=== PATIENT | male | born 1970 | race Caucasian/White ===

== ENCOUNTER 2018-01-20 05:27 | Emergency (ER) | payer OTHER ==
[~2018-01-20] VITALS: Ht 188 cm; Wt 127.0 kg
[~2018-01-20 05:27] MED LIST: ATIVAN0.5 MG; BACTROBAN CREAM30 G1 TOP; FLEXERIL PO; HYDROCODONE-AP1 EAC6 PO; IBUPROFEN 800800 M1 PO; METFORMIN HCL500 MG PO; NEURONTIN600 MG PO; NORCO 10-325 T1 EACH PO; NORCO 5-325 TA1 EACH PO; PRILOSEC 20 MG20 MG PO; PRILOSEC OTC20 MG PO; ROBAXIN 750 MG750 M1 PO; ZANAFLEX4 M1; ZANAFLEX4 MG; ZANAFLEX4 MG PO; ZOLOFT50 MG PO
[2018-01-20 06:00] LABS: ABSOLUTE EOSINOPHILS 0.1 thou/uL (0.0-0.7); ABSOLUTE LYMPHOCYTES 1.3 thou/uL (0.8-5.3); ABSOLUTE MONOCYTES 0.4 thou/uL (0.0-1.2); ABSOLUTE NEUTROPHILS 3.3 thou/uL (1.6-8.1); BASOPHILS 0.9 %; EOSINOPHILS 2.4 %; HEMATOCRIT 42.5 % (42.0-52.0); HEMOGLOBIN 14.3 gm/dL (14.0-18.0); LYMPHOCYTES 25.7 %; MCH 32.1 pg (26.0-34.0); MCHC 33.6 g/dL (28.0-37.0); MCV 95.6 fL (80.0-100.0); MONOCYTES 7.6 %; NUCLEATED RBCS 0 /100WBC; PLATELET COUNT* 324 thou/uL (150-400); POLYS 63.4 %; RBC 4.44 mil/uL (4.50-6.00); RDW-CV 14.6 % (10.5-14.5); WBC 5.2 thou/uL (4.0-11.0)
[2018-01-20 06:14] LABS: ANION GAP 9 mmol/L (7-16); BUN 9 mg/dL (7-18); CALCIUM 8.5 mg/dL (8.5-10.1); CHLORIDE 105 mmol/L (98-107); CO2 28 mmol/L (21-32); CREATININE 1.3 mg/dL (0.6-1.3); GLUCOSE 177 mg/dL (70-99); POTASSIUM 3.4 mmol/L (3.5-5.1); SODIUM 142 mmol/L (136-145)
[2018-01-20 06:18] LABS: ALBUMIN 3.3 g/dL (3.4-5.0); ALKALINE PHOSPHATASE 122 U/L (46-116); SGOT 19 U/L (15-37); SGPT 22 U/L (30-65); TOTAL BILIRUBIN 0.3 mg/dL (<0.1-1.0); TOTAL PROTEIN 7.1 g/dL (6.4-8.2); TROPONIN-I LEVEL <0.06 ng/mL (<0.06)
[2018-01-20 06:51] LABS: URINE BILIRUBIN NEGATIVE (Negative); URINE BLOOD NEGATIVE (Negative); URINE CLARITY CLEAR; URINE COLOR YELLOW; URINE GLUCOSE-RANDOM NEGATIVE (Negative); URINE KETONES NEGATIVE (Negative); URINE LEUKOCYTES-REFLEX 1+ (Negative); URINE NITRITE-REFLEX NEGATIVE (Negative); URINE PROTEIN NEGATIVE (Negative); URINE UROBILINOGEN 0.2 E.U./dl (0.2-1.0)
[2018-01-20 06:59] LABS: AMP/METHAMP Negative (Negative); BACTERIA-REFLEX 1-9 Few /HPF (None Seen); BARBITURATES Negative (Negative); BENZODIAZEPINES Negative (Negative); CASTS None Seen /LPF (None Seen); COCAINE Negative (Negative); CRYSTALS None Seen /LPF (None Seen); METHADONE Negative (Negative); MUCUS 0-3 Light strn/LPF (None Seen); OPIATES POSITIVE (Negative); PCP Negative (Negative); SQUAMOUS 0-3 Few /LPF (0-3); THC Negative (Negative); URINE RBC 0-2 Rare /HPF (0-2); URINE WBC-REFLEX 6-15 Few /HPF (0-5)
[2018-01-20 07:39] VITALS: BP 153/90
--- NOTE | 2018-01-20 12:02 | EKG ---
[place] [address] ELECTROCARDIOGRAM REPORT Name: MARTHA RIVERA [id number] Admission: 01/20/18 Attend Phys: Discharge: 01/20/18 Date of : 70 Report #: [id number] THIS REPORT FOR: //name// [facility] ED Test Date: 2018-01-20 Test Time: 05:43:41 Pat Name: MARTHA RIVERA Department: Room: Gender: M Graphic Coordinator: MIKAELA : 1970 Requested By: Ruth Wild Order Number: [id number] MD: Fred Jimenez Measurements Intervals [place] Rate: 83 P: 37 NC: 146 QRS: 28 QRSD: 90 T: 24 QT: 375 QTc: 441 Interpretive Statements Sinus rhythm Abnormal R-wave progression, early transition Baseline wander in lead(s) III,aVL,V2 Compared to ECG 06/11/2017 21:41:14 No significant changes Electronically Signed On 01-20-2018 12:02:21 PATIENT SERVICE REP by Fred Jimenez [email or web address] <ELECTRONICALLY SIGNED> By: Fred Jimenez MD, [facility] 01/20/18 1202 0543 0543 Fred Jimenez MD, [facility] /EPI
== END 2018-01-20 07:54 | disposition home or self-care (01) ==
LOC: M.ERS 05:27
PROVIDERS: Emergency Medicine
DX: R55 Syncope and collapse (principal); E11.9 Type 2 diabetes mellitus without complications; G89.29 Other chronic pain; F17.210 Nicotine dependence, cigarettes, uncomplicated; M54.9 Dorsalgia, unspecified; Z87.442 Personal history of urinary calculi; W18.39XA Other fall on same level, initial encounter; Y93.89 Activity, other specified; Y92.038 Other place in apartment as the place of occurrence of the external cause; Y99.8 Other external cause status

== ENCOUNTER 2018-04-20 13:47 | Emergency (ER) | payer OTHER ==
[~2018-04-20] VITALS: Ht 188 cm; Wt 129.3 kg
[2018-04-20] MEDS ORDERED: ZANAFLEX4 MG PO (14:29)
[2018-04-20 15:10] LABS: ABSOLUTE EOSINOPHILS 0.1 thou/uL (0.0-0.7); ABSOLUTE LYMPHOCYTES 1.3 thou/uL (0.8-5.3); ABSOLUTE MONOCYTES 0.4 thou/uL (0.0-1.2); ABSOLUTE NEUTROPHILS 2.6 thou/uL (1.6-8.1); BASOPHILS 0.7 %; EOSINOPHILS 3.4 %; HEMATOCRIT 38.5 % (42.0-52.0); HEMOGLOBIN 12.9 gm/dL (14.0-18.0); LYMPHOCYTES 28.9 %; MCH 30.3 pg (26.0-34.0); MCHC 33.6 g/dL (28.0-37.0); MCV 90.1 fL (80.0-100.0); MONOCYTES 8.5 %; MPV 7.5 fl. (7.2-11.1); NUCLEATED RBCS 0 /100WBC; PLATELET COUNT* 286 thou/uL (150-400); POLYS 58.5 %; RBC 4.28 mil/uL (4.50-6.00); RDW-CV 14.7 % (10.5-14.5); WBC 4.4 thou/uL (4.0-11.0)
[2018-04-20 15:27] LABS: ANION GAP 7 mmol/L (7-16); BUN 7 mg/dL (7-18); CHLORIDE 103 mmol/L (98-107); CO2 31 mmol/L (21-32); GLUCOSE 103 mg/dL (70-99); POTASSIUM 3.8 mmol/L (3.5-5.1); SODIUM 141 mmol/L (136-145)
[2018-04-20 15:41] LABS: ALBUMIN 2.8 g/dL (3.4-5.0); ALKALINE PHOSPHATASE 75 U/L (46-116); CK-MB MASS < 0.5 ng/mL (<0.5-3.6); SGOT 17 U/L (15-37); SGPT 18 U/L (30-65); TOTAL BILIRUBIN 0.9 mg/dL (<0.1-1.0); TROPONIN-I LEVEL <0.06 ng/mL (<0.06)
[2018-04-20 16:02] LABS: URINE BILIRUBIN NEGATIVE (Negative); URINE BLOOD NEGATIVE (Negative); URINE CLARITY CLEAR; URINE COLOR YELLOW; URINE GLUCOSE-RANDOM NEGATIVE (Negative); URINE KETONES NEGATIVE (Negative); URINE LEUKOCYTES-REFLEX NEGATIVE (Negative); URINE NITRITE-REFLEX NEGATIVE (Negative); URINE PROTEIN NEGATIVE (Negative)
[2018-04-20 16:06] LABS: AMP/METHAMP Negative (Negative); BARBITURATES Negative (Negative); BENZODIAZEPINES Negative (Negative); COCAINE POSITIVE (Negative); METHADONE Negative (Negative); OPIATES POSITIVE (Negative); PCP Negative (Negative); THC Negative (Negative)
[2018-04-20 17:25] VITALS: BP 139/101
--- NOTE | 2018-04-22 15:46 | EKG ---
[place] [address] ELECTROCARDIOGRAM REPORT Name: MARTHA RIVERA [id number] Admission: 04/20/18 Attend Phys: Discharge: 04/20/18 Date of : 70 Report #: [id number] THIS REPORT FOR: //name// [facility] ED Test Date: 2018-04-20 Test Time: 14:54:15 Pat Name: MARTHA RIVERA Department: Room: Gender: M Inside Sales Coordinator: Sarah HALL : 1970 Requested By: Fany Santoyo Order Number: [id number] MD: Aroldo Barrios Measurements Intervals [place] Rate: 53 P: 27 CT: 148 QRS: 37 QRSD: 92 T: 30 QT: 455 QTc: 428 Interpretive Statements Sinus rhythm with short CT interval Abnormal R-wave progression, early transition Compared to ECG 01/20/2018 05:43:41 No significant changes Electronically Signed On 04-22-2018 15:45:55 CDT by Aroldo Barrios [email or web address] <ELECTRONICALLY SIGNED> By: Aroldo Barrios MD, [facility] 04/22/18 1545 1454 1454 Aroldo Barrios MD, [facility] /EPI
== END 2018-04-20 17:26 | disposition home or self-care (01) ==
LOC: M.ERS 13:47
PROVIDERS: Personal Emergency Response Attendant
DX: F11.23 Opioid dependence with withdrawal (principal); G89.29 Other chronic pain; M54.9 Dorsalgia, unspecified; F17.210 Nicotine dependence, cigarettes, uncomplicated; F10.99 Alcohol use, unspecified with unspecified alcohol-induced disorder; Z90.49 Acquired absence of other specified parts of digestive tract